=== PATIENT | female | born 1960 | race Caucasian/White ===

== ENCOUNTER 2024-05-21 13:45 | Emergency (ER) | payer OTHER ==
[~2024-05-21] VITALS: Wt 79.4 kg
[2024-05-21] MEDS ORDERED: ACETAMINOPHEN500 M4 PO (14:32)
[2024-05-21] MEDS ORDERED: ROSUVASTATIN CA10 MG PO (14:32)
[2024-05-21] MEDS ORDERED: PREGABALIN75 MG PO (14:32)
[2024-05-21] MEDS ORDERED: BUSPAR5 MG PO (14:33)
[2024-05-21] MEDS ORDERED: OMEPRAZOLE MAGN20 MG PO (14:33)
[2024-05-21] MEDS ORDERED: OXYCODONE-ACET1 EAC3 PO (14:33)
[2024-05-21] MEDS ORDERED: POTASSIUM CHLO20 ME3 PO (14:33)
[2024-05-21] MEDS ORDERED: ZESTORETIC 20-1 EACH PO (14:34)
[2024-05-21 14:51] LABS: BASO % 0.3 % (0.0-1.0); EOS # 0.4 10*3/uL (0.0-0.4); EOS % 3.1 % (1.0-4.0); HEMATOCRIT 34.9 % (37.0-47.0); MEAN CORPUSCULAR HGB 28.2 pg (27.0-31.0); MEAN CORPUSCULAR HGB CONC 32.4 g/dl (33.0-37.0); MEAN PLATELET VOLUME 8.8 fl (9.6-12.3); MONO # 0.8 10*3/uL (0.1-1.0); MONO % 6.6 % (3.0-9.0); NEUT # 9.1 10*3/uL (2.3-7.9); NEUT % 77.4 % (47.0-73.0); PLATELET COUNT AUTOMATED 319 10*3/uL (130-400); RED BLOOD COUNT 4.01 10*6/uL (4.10-5.10); RED CELL DISTRI WIDTH 14.1 % (0-14.5); WHITE BLOOD COUNT 11.7 10*3/uL (4.8-10.8)
[2024-05-21 15:09] LABS: BUN 14 mg/dl (9-23); CHLORIDE 101 mmol/L (98-107); POTASSIUM 3.3 mmol/L (3.4-5.1)
[2024-05-21 15:29] LABS: ACT PARTIAL THROMBO TIME 34.7 SECONDS (20.0-32.1)
[2024-05-21] MEDS ORDERED: SODIUM CHLORIDE 0.9% 100 ML BAG IV ONE (15:45)
[2024-05-21] MEDS ORDERED: IOHEXOL 350 MG/ML 100 ML VIAL IV ONE ×2 (15:45→16:21)
[2024-05-21] MEDS ORDERED: SODIUM CHLORIDE 0.9% 100 ML IV ONE (16:21)
[2024-05-21] MEDS ORDERED: XARELTO10 MG PO (18:28)
== END 2024-05-21 18:30 | disposition home or self-care (01) ==
LOC: ED 13:45
PROVIDERS: Internal Medicine
DX: I82.401 Acute embolism and thrombosis of unspecified deep veins of right lower extremity (principal)